=== PATIENT | male | born 1985 | race Two or more races ===

== ENCOUNTER → 2020-02-08 06:00 | Outpatient (CLI) | payer OTHER ==
[~2020-02-08] VITALS: Ht 170.2 cm; Wt 116.6 kg
== END | disposition home or self-care (01) ==
LOC: LAB 06:00 → O/R 02-15 08:15 → EDSTATUS 02-15 08:15 → O/R 02-15 11:30
PROVIDERS: ATTEND Surgery
DX: U07.1 COVID-19 (principal); K57.20 Diverticulitis of large intestine with perforation and abscess without bleeding; R10.32 Left lower quadrant pain; K65.1 Peritoneal abscess; E66.8 Other obesity; I10 Essential (primary) hypertension

== ENCOUNTER 2020-03-22 09:30 | Inpatient (IN) | payer OTHER ==
[~2020-03-22] VITALS: Ht 170.2 cm; Wt 70.3 kg
[2020-03-31] MEDS ORDERED: OMEPRAZOLE20 MG PO (12:20)
[2020-03-31] MEDS ORDERED: CIPRO500 MG PO (12:20)
[2020-03-31] MEDS ORDERED: PERCOCET 5-3251 EACH PO (12:20)
== END 2020-03-31 12:30 | disposition home or self-care (01) | DRG 331 ==
LOC: SURH 03-28 06:35 → O/R 03-28 06:35 → SURH 03-28 09:30
PROVIDERS: ADMIT Surgery; ATTEND Surgery
PROC: 0DJD8ZZ Inspection of Lower Intestinal Tract, Via Natural or Artificial Opening Endoscopic (ICD-10-PCS; 2020-03-28)
PROC: 0DTN4ZZ Resection of Sigmoid Colon, Percutaneous Endoscopic Approach (ICD-10-PCS; principal; 2020-03-28 17:00)
DX: K57.20 Diverticulitis of large intestine with perforation and abscess without bleeding (principal); Z20.828 Contact with and (suspected) exposure to other viral communicable diseases

== ENCOUNTER 2021-04-23 10:37 | Day surgery (SDC) | payer OTHER ==
[~2021-04-23 10:37] MED LIST: CIPRO500 MG PO; OMEPRAZOLE20 MG PO; PERCOCET 5-3251 EACH PO
== END 2021-04-23 14:50 | disposition home or self-care (01) ==
LOC: AMB-ENDOS 10:37
PROVIDERS: ATTEND Surgery
DX: K57.32 Diverticulitis of large intestine without perforation or abscess without bleeding (principal)